=== PATIENT | male | born 1960 | race Caucasian/White ===

== ENCOUNTER 2024-11-15 06:19 | Day surgery (SDC) | payer OTHER, SELFPAY ==
[2024-10-27 11:45] LABS: Hematocrit 44.5 % (39.0-52.0); Hemoglobin 15.5 g/dL (13.0-18.0); Mean Corp Hgb Conc. 34.8 g/dL (33.0-37.0); Mean Corpuscular Hgb 31.3 pg (27.0-31.0); Mean Corpuscular Volume 89.7 fL (80.0-94.0); Mean Platelet Volume 10.4 fL (7.4-10.4); Platelet Count 230 10^3/uL (130-400); Red Blood Cell Count 4.96 10^6/uL (4.70-6.10); Red Cell Dist. Width 12.6 % (11.5-14.5); White Blood Cell Count 4.9 10^3/uL (4.8-10.8)
[2024-10-27 12:43] LABS: Blood Urea Nitrogen 16 mg/dl (9-20); Calcium 9.5 mg/dl (8.4-10.2); Carbon Dioxide 26 mmol/L (22-30); Chloride 99 mmol/L (98-107); Glucose 98 mg/dl (70-99); Potassium 4.7 mmol/L (3.5-5.1); Sodium 137 mmol/L (135-145); eGFR > 60.00
[2024-10-27 14:25] VITALS: BMI 25.2
[2024-11-15] VITALS (11 sets, daily range): BP systolic 98–159; BP diastolic 54–92; BMI 25.2
--- NOTE | 2024-11-15 07:02 | HP.FOC2 ---
Focused History & Physical
Chief Complaint
HPI:
Chief Complaint: Ventral hernia, recurrent left inguinal hernia
HPI / Indication for Planned Procedure: Patient is a 64-year-old male with a history of having undergone laparoscopic bilateral inguinal herniorrhaphy at outside hospital in 2014. Medical records reviewed. Lap TEP repair, left indirect and direct
component noted. 3D max regular mesh repair secured with Tisseel and tacking.
Reports now a couple year history of pinching and burning in the left inguinal region. As well as swelling of varying size. There is a separate area of visible swelling present about the umbilical region, slowly increasing in size with
intermittent discomfort at times.
Relevant Past Medical History: Other (BPH)
Relevant Social History: Negative
Relevant Family History: Negative
Relevant Past Surgical History: Positive for (Lap bilateral inguinal herniorrhaphy with mesh)
Review of Systems
Review of Pertinent Systems: All Systems Negative
Medication
See Medication form for detailed medications: Yes
Medication List (including Herbals & OTC):
tamsulosin 0.4 mg capsule 0.4 mg PO HS 11/08/24
Medications Reviewed: Yes
Allergies and Reactions
Patient has Allergies: No
Noted Allergies and Reactions:
Allergy/AdvReac Type Severity Reaction Status Date / Time
No Known Allergies Allergy Verified 11/08/24 11:19
Pertinent Physical Exam
All Other Systems: Negative
Head/Neck: Normal
Lungs: Normal
Heart: Normal
Abdomen: Other (Soft reducible supraumbilical ventral hernia. Reducible left inguinal hernia. Nontender, recurs while standing.)
Extremities: Normal
Neurological: Normal
Diagnosis / Assessment
64-year-old male presenting for scheduled operative correction recurrent left inguinal hernia and ventral hernia
Plan / Procedure
Robotic assisted laparoscopic repair of recurrent left with mesh, possible open; open ventral hernia repair with possible mesh
Anesthesia/Sedation to be done by Anesthesia Provider: Yes
--- NOTE | 2024-11-15 07:06 | W.SUR.PREOP ---
Pre-Operative Surgical Note
-
I have examined this patient prior to the performance of the scheduled procedure.
The patient's condition is unchanged from the time of the current History and
Physical and the patient is able to undergo the scheduled procedure.
[2024-11-15] MEDS: NORMOSOL-R/PLASMALYTE-A 1000 IV (07:25)
[2024-11-15] MEDS: TYLENOL 1000 MG PO (07:25)
--- NOTE | 2024-11-15 14:16 | W.IMMPOSTOP ---
Addendum entered and electronically signed by Nomi Corona MD 11/17/24 16:51:
[id number]
Original Note:
Surgical Immed Post Op Note
-
Primary Surgeon: Nomi Corona MD
Assisting Surgeon: Kari PALOMINO
Pre-op Diagnosis: Recurrent left inguinal hernia
Supraumbilical ventral hernia
Post-op Diagnosis: Recurrent bilateral inguinal hernias; direct
Supraumbilical ventral hernia, 3 cm
Procedure Performed: Robotic assisted laparoscopic EDWIN repair bilateral recurrent inguinal hernias with mesh; 3D max MID extra-large x 2
Robotic assisted laparoscopic removal inguinal hernia mesh x 2
Open ventral hernia repair with mesh; Ventralex ST 8 cm round
Anesthesia Type: GETA +0.25% Marcaine with epi
Specimen / Cultures: None
Estimated Blood Loss: 26 mL
Complications: None immediate
Operative Findings: Recurrent left direct inguinal hernia due to shelling/folding of previously placed mesh. Inferior medial mesh overlying region of hernia recurrence excised to facilitate repair of hernia recurrence. Mesh overlying inferior
epigastric vessels left in place adjacent to abdominal wall and vasculature to preserve them. Lateral mesh mobilized with peritoneal flap. 3D max extra-large mid weight mesh repair.
Recurrent right direct inguinal hernia due to shadowing/folding of the previously placed mesh. Inferior medial mesh overlying region of hernia recurrence excised to facilitate repair of hernia recurrence. Mesh overlying inferior
epigastric vessels left in place adjacent to abdominal wall and vasculature to preserve them. Lateral mesh mobilized with peritoneal flap. 3D max extra-large mid weight mesh repair.
Supraumbilical ventral hernia, 3 cm fascial defect. Underlay preperitoneal mesh repair Ventralex ST 8 cm round. Transfascial suture fixation centrally with 0 PDS. Fascial defect closed with 0 PDS.
[2024-11-15] MEDS: ZOFRAN 4 MG IV (14:27)
[2024-11-15] MEDS: COMPAZINE 5 MG IV (14:44)
[2024-11-15] MEDS: TYLENOL 650 MG PO (16:27)
== END 2024-11-15 17:28 | disposition home or self-care (01) ==
LOC: SDS 06:19
PROVIDERS: ATTENDING PHYSICIAN Surgery; FAMILY PHYSICIAN Physician Assistant Medical
DX: K40.91 Unilateral inguinal hernia, without obstruction or gangrene, recurrent (principal); K43.9 Ventral hernia without obstruction or gangrene; N40.0 Benign prostatic hyperplasia without lower urinary tract symptoms
CPT/HCPCS: 49593; 49651; 36415; 80048; 85027; 93005; C1781